=== PATIENT | female | born 1990 | race Caucasian/White ===

== ENCOUNTER → 2019-05-25 | Outpatient (CLI) | payer OTHER ==
--- NOTE | 2019-05-25 15:26 | EKG ---
FACILITY: [facility] - [place] PATIENT NAME: GEORGINA PARRA : [id number] MR: [id number]: [id number] EXAM DATE: ORDERING PHYSICIAN: KIAN DAVIS TECHNOLOGIST: Test Reason : R53.83 and R06.02 Blood Pressure : / mmHG Vent. Rate : 051 BPM Atrial Rate : 051 BPM P-R Int : 156 ms QRS Dur : 086 ms QT Int : 444 ms P-R-T Axes : 033 054 055 degrees QTc Int : 409 ms Sinus bradycardia Otherwise normal ECG No previous ECGs available Confirmed by REGGIE MARIA ([id number]) on 05/25/2019 3:56:57 PM Referred By: Confirmed By:REGGIE MARIA
== END ==
LOC: RESP 15:06
PROVIDERS: ATTEND Nurse Practitioner Family
DX: R53.83 Other fatigue (principal); R06.02 Shortness of breath
CPT/HCPCS: 93005